=== PATIENT | male | born 1950 | race Caucasian/White ===

== ENCOUNTER → 2021-01-09 14:33 | Outpatient (BNVA) | payer MEDICARE, SELFPAY | PROVIDERS: PCP Internal Medicine; Visit Provider Internal Medicine Cardiovascular Disease | DX: I25.10 Atherosclerotic heart disease of native coronary artery without angina pectoris (principal); I10 Essential (primary) hypertension; Z79.899 Other long term (current) drug therapy | CPT/HCPCS: 93005; 99212 ==

== ENCOUNTER 2021-01-16 10:31 | Outpatient (REF) | payer MEDICARE, SELFPAY ==
[2021-01-16 10:49] LABS: MANUAL DIFF FLAG NO
[2021-01-16 11:18] LABS: Basophils Percent Auto 0.4 % (0-2); Eosinophils Absolute Auto 0.2 X10*3/uL (0.0-0.4); Eosinophils Percent Auto 2.6 % (0-4); Hematocrit 47.7 % (42-52); Imm Gran Abs Auto 0.02 X10*3/uL (0.00-0.03); Imm Gran Pct Auto 0.3 % (0.0-0.4); Lymphocytes Percent Auto 25.1 % (20-40); Mean Corpuscular HGB Conc 33.5 g/dl (31.0-36.0); Mean Corpuscular Hemoglobin 30.4 pg (27.0-33.0); Mean Corpuscular Volume 90.7 fL (80-98); Mean Platelet Volume 10.5 fL (9.4-12.4); Monocytes Absolute Auto 0.6 X10*3/uL (0.1-1.2); Neutrophils Percent Auto 63.6 % (45-73); Platelet Count 172 X10*3/uL (160-400); Red Blood Count 5.26 X10*6/uL (4.60-5.80); Red Cell Distribution Width 12.6 % (11.0-16.0); White Blood Count 7.8 X10*3/uL (4.8-10.8)
[2021-01-16 11:39] LABS: Glucose Urine UA NEG (NEG); Leukocyte Esterase Urine NEG (NEG); Nitrite Urine NEG (NEG); PH 6.5 (5.0-8.0); Specific Gravity - Urine 1.025 (1.005-1.025); Urine Blood NEG (NEG); Urine Ketones NEG (NEG); Urine Protein NEG (NEG-TRACE)
[2021-01-16 11:42] LABS: Appearance Urine CLEAR; Color Urine YELLOW
[2021-01-16 11:55] LABS: Alanine Aminotransferase 29 U/L (0-40); Alkaline Phosphatase 77 U/L (39-117); Anion Gap 14 (12-20); Aspartate Amino Transferase 21 U/L (5-37); Bilirubin Total 0.9 mg/dL (0.0-1.0); Blood Urea Nitrogen 22 mg/dL (9-16); Carbon Dioxide 27 mmol/L (22-29); Chloride 105 mmol/L (96-108); Cholesterol 132 mg/dL; Estimated Glomerular Filt Rate > 60; Glucose Fasting 96 mg/dL (60-99); HDL Cholesterol 44 mg/dL; LDL Cholesterol Calculated 73 mg/dl; Potassium 4.1 mmol/L (3.3-5.1); Sodium 142 mmol/L (135-145); Triglycerides 75 mg/dL
[2021-01-16 12:05] LABS: PSA,Total (Free>4and<10) < 0.05 ng/mL (0.00-4.00)
[2021-01-16 13:31] LABS: Reflex LDLD? No
== END 2021-01-16 10:32 | disposition home or self-care (01) ==
LOC: HO.LNP 10:31
PROVIDERS: Visit Provider Internal Medicine
DX: I10 Essential (primary) hypertension (principal); I25.10 Atherosclerotic heart disease of native coronary artery without angina pectoris; E78.00 Pure hypercholesterolemia, unspecified; E53.8 Deficiency of other specified B group vitamins; C61 Malignant neoplasm of prostate; Z12.5 Encounter for screening for malignant neoplasm of prostate
CPT/HCPCS: 80053; 80061; 81003; 84153; 85025

== ENCOUNTER → 2022-01-07 13:44 | Outpatient (BNVA) | payer MEDICARE, SELFPAY | PROVIDERS: PCP Internal Medicine; Referring Provider Internal Medicine; Visit Provider Internal Medicine Cardiovascular Disease | DX: I25.10 Atherosclerotic heart disease of native coronary artery without angina pectoris (principal); I10 Essential (primary) hypertension | CPT/HCPCS: 93005; 99212 ==

== ENCOUNTER 2022-01-22 11:25 | Outpatient (REF) | payer MEDICARE, SELFPAY ==
[2022-01-22 13:10] LABS: Alanine Aminotransferase 29 U/L (0-40); Albumin Level 3.8 g/dL (3.5-5.0); Alkaline Phosphatase 72 U/L (39-117); Aspartate Amino Transferase 24 U/L (5-37); Bilirubin Direct 0.2 mg/dL (0.0-0.5); Bilirubin Total 0.7 mg/dL (0.0-1.0); Cholesterol 139 mg/dL; HDL Cholesterol 43 mg/dL; LDL Cholesterol Calculated 65 mg/dl; Total Protein 6.9 g/dL (6.5-8.0); Triglycerides 155 mg/dL
[2022-01-22 13:51] LABS: Reflex LDLD? No
== END 2022-01-22 11:26 | disposition home or self-care (01) ==
LOC: HO.LNP 11:25
PROVIDERS: PCP Internal Medicine; Visit Provider Internal Medicine
DX: I10 Essential (primary) hypertension (principal); E78.00 Pure hypercholesterolemia, unspecified
CPT/HCPCS: 80061; 80076

== ENCOUNTER 2022-01-28 16:02 | Outpatient (REF) | payer MEDICARE, SELFPAY ==
[2022-01-28 16:08] LABS: MANUAL DIFF FLAG NO
[2022-01-28 16:19] LABS: Basophils Absolute Auto 0.1 X10*3/uL (0.0-0.2); Basophils Percent Auto 0.6 % (0-2); Eosinophils Absolute Auto 0.3 X10*3/uL (0.0-0.4); Eosinophils Percent Auto 3.3 % (0-4); Hematocrit 46.5 % (42.0-52.0); Hemoglobin 15.8 g/dl (14.0-18.0); Imm Gran Abs Auto 0.02 X10*3/uL (0.00-0.03); Imm Gran Pct Auto 0.3 % (0.0-0.4); Lymphocytes Absolute Auto 1.7 X10*3/uL (1.2-4.9); Mean Corpuscular Hemoglobin 30.9 pg (27.0-33.0); Mean Platelet Volume 10.5 fL (9.4-12.4); Monocytes Absolute Auto 0.7 X10*3/uL (0.1-1.2); Monocytes Percent Auto 9.5 % (2-11); Neutrophils Percent Auto 64.3 % (45-73); Platelet Count 189 X10*3/uL (160-400); Red Blood Count 5.11 X10*6/uL (4.60-5.80); Red Cell Distribution Width 12.1 % (11.0-16.0); White Blood Count 7.8 X10*3/uL (4.8-10.8)
[2022-01-28 16:28] LABS: Appearance Urine CLEAR; Color Urine YELLOW; Glucose Urine UA NEG (NEG); Leukocyte Esterase Urine NEG (NEG); Nitrite Urine NEG (NEG); PH 5.5 (5.0-8.0); Specific Gravity - Urine >= 1.030 (1.005-1.025); Urine Blood NEG (NEG); Urine Ketones NEG (NEG); Urine Protein NEG (NEG-TRACE)
[2022-01-28 16:33] LABS: Alanine Aminotransferase 26 U/L (0-40); Alkaline Phosphatase 75 U/L (39-117); Anion Gap 13 (12-20); Aspartate Amino Transferase 22 U/L (5-37); Bilirubin Total 0.6 mg/dL (0.0-1.0); Blood Urea Nitrogen 24 mg/dL (9-16); Calcium 9.5 mg/dL (8.4-10.2); Carbon Dioxide 27 mmol/L (22-29); Chloride 106 mmol/L (96-108); Estimated Glomerular Filt Rate > 60; Glucose Random 101 mg/dL (60-115); Potassium 4.1 mmol/L (3.3-5.1); Sodium 142 mmol/L (135-145); Total Protein 7.1 g/dL (6.5-8.0)
== END 2022-01-28 16:03 | disposition home or self-care (01) ==
LOC: HO.LNP 16:02
PROVIDERS: Visit Provider Internal Medicine
DX: I10 Essential (primary) hypertension (principal); R30.0 Dysuria
CPT/HCPCS: 80053; 81003; 85025; 87086

== ENCOUNTER 2022-08-02 10:36 | Outpatient (REF) | payer MEDICARE, SELFPAY ==
[2022-08-02 11:30] LABS: Alanine Aminotransferase 23 U/L (0-40); Albumin Level 3.9 g/dL (3.5-5.0); Alkaline Phosphatase 73 U/L (39-117); Aspartate Amino Transferase 20 U/L (5-37); Bilirubin Direct 0.3 mg/dL (0.0-0.5); Bilirubin Total 0.9 mg/dL (0.0-1.0); Cholesterol 139 mg/dL; HDL Cholesterol 41 mg/dL; LDL Cholesterol Calculated 77 mg/dl; Total Protein 6.7 g/dL (6.5-8.0); Triglycerides 105 mg/dL
[2022-08-02 12:03] LABS: Reflex LDLD? No
== END 2022-08-02 10:37 | disposition home or self-care (01) ==
LOC: HO.LNP 10:36
PROVIDERS: Visit Provider Internal Medicine
DX: E78.00 Pure hypercholesterolemia, unspecified (principal)
CPT/HCPCS: 80061; 80076

== ENCOUNTER 2022-12-02 11:09 | Day surgery (SDC) | payer MEDICARE, SELFPAY ==
--- NOTE | 2022-12-02 11:24 | HO.ANESPROP2 ---
[facility] Active Problems Active Problems: All Active Problems (Updated 11/29/22 @ 12:46 by Cristin Bynum RN) HTN (hypertension) (Acute) CAD (coronary artery disease) (Acute) Past Medical History Medical History (Updated 11/29/22 @ 12:46 by Cristin Bynum RN) CAD (coronary artery disease) HTN (hypertension) Hyperlipidemia IBS (irritable bowel syndrome) Prostate cancer Retinal detachment Sleep apnea Family History Family History Father No problems noted. Mother No problems noted. Family history of problems with anesthesia: No Surgical History Surgical History (Updated 11/29/22 @ 12:46 by Cristin Bynum RN) H/O colonoscopy History of cataract surgery History of prostate surgery Hx of knee surgery History of Problems with Anesthesia: No Social History Social History Advance Directives: No Advance Directives Information Provided: Yes Meds Allergies Allergy/AdvReac Type Severity Reaction Status Date / Time hydrochlorothiazide [HCTZ] Allergy Unknown COUGH WHEN Unverified 07/06/20 15:35 MED COMBO W/ LISINOPRIL, dry cough Active Medications: Current Medications Sodium Biphosphate/Sodium Phosphate (Sodium Phosphate,[place]-Dibasic 133 Ml Enema) 133 ml DE ONCE PRN PRN Reason: Poor Colonoscopy Prep Results Home Medications Medication Instructions Recorded Confirmed Last Taken Type aspirin 81 mg tablet,delayed 81 mg PO DAILY 01/09/21 01/07/22 Unknown History release (Adult Low Dose Aspirin) atorvastatin 80 mg tablet 80 mg PO DAILY 01/09/21 01/07/22 Unknown History cholecalciferol (vitamin D3) 25 25 mcg PO DAILY 01/09/21 01/07/22 Unknown History mcg (1,000 unit) capsule metoprolol succinate 50 mg 50 mg PO DAILY 01/09/21 01/07/22 Unknown History tablet,extended release 24 hr omeprazole 20 mg capsule,delayed 20 mg PO DAILY 01/09/21 01/07/22 Unknown History release valsartan 160 1 tab PO DAILY 01/09/21 01/07/22 Unknown History mg-hydrochlorothiazide 12.5 mg tablet timolol maleate 0.5 % eye drops 0 drp ophthalmic (eye) 01/07/22 01/07/22 Unknown History Exam Exam Date and Time: December 02, 2022 1124 Airway Mallampati Class: II TM Dist: >3cm Neck ROM: Limited Heart: rrr Lungs: cts Assessment and Plan Assessment Anesthesia Assessment: Anesthesia Plan Discussed and Chart Reviewed Final Anesthetic Review Family History of Problems with Anesthesia: No History of Problems with Anesthesia: No NPO: Yes ASA Class: III Final Preanesthetic Review: No Changes in Pt Med Stat, Meds/Allgs Chart Reviewed, Consent Obtained/Reviewed and Anes Risks/Benef Reviewed Patient Risk: Intermediate Procedure Risk: Low Anesthetic Plan Anesthetic Plan: MAC: Disposition: Standard PACU
[2022-12-02 11:30] VITALS: BMI 35.2
[2022-12-02 11:38] VITALS: BP 150/75; PULSE 64; RESP 16; TEMP 36.4; O2SAT 98
[2022-12-02 12:45] VITALS: BP 96/73; PULSE 60; RESP 16; TEMP 36.8; O2SAT 95
--- NOTE | 2022-12-02 12:48 | PM.OP ---
Brief Operative Note Date of Service: 12/02/22 Pre-op diagnosis: Screening Post-op diagnosis: other (Polyps) Procedure: Colonoscopy to the cecum and TI with hot snare polypectomy x 2 Surgeon: Radu Bains Anesthesia: MAC Was an Box Covering Machine Operator used for this Procedure?: No Estimated blood loss (mL): 0 Pathology: other (A. Ascending colon polyp B. Transverse colon polyp) Condition: stable Disposition: PACU
[2022-12-02 13:00] VITALS: BP 101/55; PULSE 65; RESP 16; TEMP 36.8; O2SAT 99
--- NOTE | 2022-12-02 21:34 | OP_ITS ---
SURGEON: Radu Bains MD INDICATIONS: The patient presents for evaluation of colorectal cancer screening and personal history of tubular adenoma of the colon. Full consent has been obtained from him for this, including risks of bleeding and perforation. PREOPERATIVE DIAGNOSIS: POSTOPERATIVE DIAGNOSIS: PROCEDURE PERFORMED: Colonoscopy to the cecum and terminal ileum with hot snare polypectomy. ESTIMATED BLOOD LOSS: COMPLICATIONS: ANESTHESIA: Monitored anesthesia care. ASSISTANTS: SPECIMENS: PREOPERATIVE DIAGNOSES: Colorectal cancer screening and personal history of tubular adenoma of the colon. POSTOPERATIVE DIAGNOSES: Colorectal cancer screening and personal history of tubular adenoma of the colon, colon polyps, diverticulosis, and internal hemorrhoids. DESCRIPTION OF PROCEDURE: The patient was placed in the left lateral decubitus position. The digital rectal exam revealed no abnormalities. The Olympus video pediatric colonoscope was then entered into the rectum and advanced easily to the cecum. Once in the cecum, I did identify normal-appearing cecal pouch with appendiceal orifice and normal-appearing ileocecal valve. The terminal ileum was cannulated and it appeared normal. The scope was withdrawn back in the colon. The entire cecum and ileocecal valve appeared normal. The scope was slowly withdrawn assessing all mucosal surfaces carefully. Preparation was good throughout the colon, although there was some areas of some liquid stool which had to be irrigated and suctioned away. In the proximal ascending colon, on a fold, was an approximately 10 mm polyp which was removed by hot snare polypectomy and recovered by suction. The polypectomy site appeared clean, without any sign of residual polyp nor bleeding. In the transverse colon, there was an approximately 8 mm polyp which was removed by hot snare polypectomy and recovered by suction. The polypectomy site appeared clean, without any sign of residual polyp nor bleeding. I did not visualize any other polyps, colitis nor angiodysplasia. There is a mild amount of sigmoid diverticulosis. In the rectum, scope was retroflexed visualizing internal hemorrhoids, but no other pathology. The rectal mucosa appeared normal. The scope was straightened and withdrawn from the patient. He tolerated the procedure well and was returned to the recovery area in stable condition. IMPRESSION: 1. Colon polyps. 2. Diverticulosis. 3. Internal hemorrhoids. PLAN: The results of pathology will be checked. Given his age, multiple previous colonoscopies, and today's relatively minimal findings, I do not think he will need any further screening colonoscopies. He was advised to not to use any aspirin or NSAIDs for 1 week. He will see me on a p.r.n. basis. MD MAYA Pemberton/MAHESH / [phone] MTDD
== END 2022-12-02 13:20 | disposition home or self-care (01) ==
PROVIDERS: PCP Internal Medicine; Visit Provider Internal Medicine
PROC: 0DJD8ZZ Inspection of Lower Intestinal Tract, Via Natural or Artificial Opening Endoscopic (ICD-10-PCS; CPT 45378; principal; 2022-12-02 12:20)
DX: Z12.11 Encounter for screening for malignant neoplasm of colon (principal); Z86.010 Personal history of colon polyps; D12.2 Benign neoplasm of ascending colon; D12.3 Benign neoplasm of transverse colon; K57.30 Diverticulosis of large intestine without perforation or abscess without bleeding; K64.8 Other hemorrhoids; K58.9 Irritable bowel syndrome, unspecified; K21.9 Gastro-esophageal reflux disease without esophagitis; E78.5 Hyperlipidemia, unspecified; I10 Essential (primary) hypertension; G47.30 Sleep apnea, unspecified; Z79.82 Long term (current) use of aspirin; Z79.899 Other long term (current) drug therapy; Z88.8 Allergy status to other drugs, medicaments and biological substances; Z85.46 Personal history of malignant neoplasm of prostate
CPT/HCPCS: 45385; 88305

== ENCOUNTER 2023-01-28 11:56 | Outpatient (REF) | payer MEDICARE, SELFPAY ==
[2023-01-28 11:59] LABS: MANUAL DIFF FLAG NO
[2023-01-28 12:14] LABS: Basophils Absolute Auto 0.1 X10*3/uL (0.0-0.2); Basophils Percent Auto 0.7 % (0-2); Eosinophils Absolute Auto 0.3 X10*3/uL (0.0-0.4); Eosinophils Percent Auto 3.3 % (0-4); Hematocrit 46.5 % (42.0-52.0); Hemoglobin 15.7 g/dl (14.0-18.0); Imm Gran Abs Auto 0.02 X10*3/uL (0.00-0.03); Imm Gran Pct Auto 0.3 % (0.0-0.4); Lymphocytes Absolute Auto 2.3 X10*3/uL (1.2-4.9); Lymphocytes Percent Auto 30.6 % (20-40); Mean Corpuscular HGB Conc 33.8 g/dl (31.0-36.0); Mean Corpuscular Hemoglobin 30.6 pg (27.0-33.0); Mean Corpuscular Volume 90.6 fL (80.0-98.0); Mean Platelet Volume 10.4 fL (9.4-12.4); Monocytes Absolute Auto 0.7 X10*3/uL (0.1-1.2); Monocytes Percent Auto 8.5 % (2-11); Neutrophils Absolute Auto 4.3 x10*3/uL (2.0-8.3); Neutrophils Percent Auto 56.6 % (45-73); Platelet Count 168 X10*3/uL (160-400); Red Blood Count 5.13 X10*6/uL (4.60-5.80); Red Cell Distribution Width 12.7 % (11.0-16.0); White Blood Count 7.6 X10*3/uL (4.8-10.8)
[2023-01-28 12:19] LABS: Appearance Urine Clear; Color Urine Yellow; Glucose Urine UA Negative (Negative); Leukocyte Esterase Urine Negative (Negative); Nitrite Urine Negative (Negative); PH 5.5 (5.0-9.0); Specific Gravity - Urine 1.025 (1.005-1.025); Urine Blood Negative (Negative); Urine Ketones Negative (Negative); Urine Protein Negative (Neg-Trace)
[2023-01-28 12:22] LABS: Bacteria Urine None Seen (None Seen); Hyaline Casts Urine 0-2 /LPF (0-2); RBC Urine 0-2 /HPF (0-2); Squamous Epithelial Cell Urine 0-2 /HPF (0-2); WBC Urine 0-5 /HPF (0-5)
[2023-01-28 12:41] LABS: Alanine Aminotransferase 21 U/L (0-40); Albumin Level 3.7 g/dL (3.5-5.0); Alkaline Phosphatase 69 U/L (39-117); Anion Gap 9 (12-20); Aspartate Amino Transferase 17 U/L (5-37); Bilirubin Total 0.9 mg/dL (0.0-1.0); Blood Urea Nitrogen 21 mg/dL (9-16); Carbon Dioxide 32 mmol/L (22-29); Chloride 106 mmol/L (96-108); Cholesterol 150 mg/dL; Estimated Glomerular Filt Rate 60; Glucose Fasting 101 mg/dL (60-99); HDL Cholesterol 45 mg/dL; LDL Cholesterol Calculated 92 mg/dl; Potassium 4.2 mmol/L (3.3-5.1); Sodium 143 mmol/L (135-145); Total Protein 6.5 g/dL (6.5-8.0); Triglycerides 66 mg/dL
[2023-01-28 13:04] LABS: PSA,Total (Free>4and<10) < 0.10 ng/mL (0.00-4.00)
== END 2023-01-28 11:57 | disposition home or self-care (01) ==
LOC: HO.LNP 11:56
PROVIDERS: Visit Provider Internal Medicine
DX: Z12.5 Encounter for screening for malignant neoplasm of prostate (principal); E78.00 Pure hypercholesterolemia, unspecified; I10 Essential (primary) hypertension
CPT/HCPCS: 80053; 80061; 81001; 84153; 85025

== ENCOUNTER 2023-08-15 11:01 | Outpatient (REF) | payer MEDICARE, SELFPAY ==
[2023-08-15 11:36] LABS: Alanine Aminotransferase 41 U/L (0-40); Albumin Level 3.6 g/dL (3.5-5.0); Alkaline Phosphatase 61 U/L (39-117); Aspartate Amino Transferase 30 U/L (5-37); Bilirubin Direct 0.3 mg/dL (0.0-0.5); Bilirubin Total 0.8 mg/dL (0.0-1.0); Total Protein 6.6 g/dL (6.5-8.0)
[2023-08-15 11:37] LABS: Cholesterol 133 mg/dL (<200); HDL Cholesterol 43 mg/dL (>40); LDL Cholesterol Calculated 76 mg/dL (<100); Triglycerides 72 mg/dL (<150)
[2023-08-15 15:52] LABS: Reflex LDLD? No
== END 2023-08-15 11:02 | disposition home or self-care (01) ==
LOC: HO.LNP 11:01
PROVIDERS: Visit Provider Internal Medicine
DX: E78.00 Pure hypercholesterolemia, unspecified (principal)
CPT/HCPCS: 80061; 80076

== ENCOUNTER 2024-02-03 11:14 | Outpatient (REF) | payer MEDICARE, SELFPAY ==
[2024-02-03 11:17] LABS: MANUAL DIFF FLAG NO
[2024-02-03 12:00] LABS: Appearance Urine Clear; Color Urine Yellow; Glucose Urine UA Negative (Negative); Leukocyte Esterase Urine Negative (Negative); Nitrite Urine Negative (Negative); Specific Gravity - Urine 1.025 (1.005-1.025); Urine Blood Negative (Negative); Urine Ketones Negative (Negative); Urine Protein Negative (Neg-Trace)
[2024-02-03 12:12] LABS: Basophils Percent Auto 0.5 % (0-2); Eosinophils Absolute Auto 0.2 X10*3/uL (0.0-0.4); Eosinophils Percent Auto 3.1 % (0-4); Hematocrit 45.7 % (42.0-52.0); Hemoglobin 15.7 g/dl (14.0-18.0); Imm Gran Abs Auto 0.03 X10*3/uL (0.00-0.03); Imm Gran Pct Auto 0.4 % (0.0-0.4); Lymphocytes Absolute Auto 2.2 X10*3/uL (1.2-4.9); Lymphocytes Percent Auto 27.8 % (20-40); Mean Corpuscular HGB Conc 34.4 g/dl (31.0-36.0); Mean Corpuscular Hemoglobin 31.3 pg (27.0-33.0); Mean Platelet Volume 10.6 fL (9.4-12.4); Monocytes Absolute Auto 0.7 X10*3/uL (0.1-1.2); Monocytes Percent Auto 8.5 % (2-11); Neutrophils Absolute Auto 4.7 x10*3/uL (2.0-8.3); Neutrophils Percent Auto 59.7 % (45-73); Platelet Count 186 X10*3/uL (160-400); Red Blood Count 5.02 X10*6/uL (4.60-5.80); Red Cell Distribution Width 12.9 % (11.0-16.0); White Blood Count 7.8 X10*3/uL (4.8-10.8)
[2024-02-03 12:14] LABS: Bacteria Urine None Seen (None Seen); Hyaline Casts Urine 0-2 /LPF (0-2); RBC Urine 0-2 /HPF (0-2); Squamous Epithelial Cell Urine 0-2 /HPF (0-2); WBC Urine 0-5 /HPF (0-5)
[2024-02-03 13:12] LABS: PSA,Total (Free>4and<10) < 0.10 ng/mL (0.00-4.00)
[2024-02-03 13:46] LABS: Alanine Aminotransferase 21 U/L (0-40); Albumin Level 3.8 g/dL (3.5-5.0); Alkaline Phosphatase 66 U/L (39-117); Anion Gap 14 (12-20); Aspartate Amino Transferase 20 U/L (5-37); Bilirubin Total 0.7 mg/dL (0.0-1.0); Blood Urea Nitrogen 24 mg/dL (9-16); Calcium 9.3 mg/dL (8.4-10.2); Carbon Dioxide 27 mmol/L (22-29); Chloride 104 mmol/L (96-108); Cholesterol 124 mg/dL (<200); Estimated Glomerular Filt Rate > 60; Glucose Fasting 95 mg/dL (60-99); HDL Cholesterol 45 mg/dL (>40); LDL Cholesterol Calculated 68 mg/dL (<100); Potassium 3.6 mmol/L (3.3-5.1); Sodium 141 mmol/L (135-145); Total Protein 7.3 g/dL (6.5-8.0); Triglycerides 55 mg/dL (<150)
== END 2024-02-03 11:15 | disposition home or self-care (01) ==
LOC: HO.LNP 11:14
PROVIDERS: Visit Provider Internal Medicine
DX: Z12.5 Encounter for screening for malignant neoplasm of prostate (principal); I10 Essential (primary) hypertension; E78.00 Pure hypercholesterolemia, unspecified
CPT/HCPCS: 80053; 80061; 81001; 84153; 85025

== ENCOUNTER 2024-05-10 10:38 | Outpatient (REF) | payer MEDICARE, SELFPAY ==
[2024-05-10 11:07] LABS: Blood Urea Nitrogen 25 mg/dL (9-16); Estimated Glomerular Filt Rate > 60
== END 2024-05-10 10:39 | disposition home or self-care (01) ==
LOC: HO.LNP 10:38
PROVIDERS: Visit Provider Internal Medicine
DX: R79.9 Abnormal finding of blood chemistry, unspecified (principal)
CPT/HCPCS: 82565; 84520

== ENCOUNTER 2024-08-03 10:56 | Outpatient (REF) | payer MEDICARE, SELFPAY ==
[2024-08-03 11:56] LABS: Alanine Aminotransferase 27 U/L (0-40); Albumin Level 3.8 g/dL (3.5-5.0); Alkaline Phosphatase 70 U/L (39-117); Aspartate Amino Transferase 23 U/L (5-37); Bilirubin Direct 0.4 mg/dL (0.0-0.5); Bilirubin Total 0.8 mg/dL (0.0-1.0); Cholesterol 126 mg/dL (<200); HDL Cholesterol 47 mg/dL (>40); LDL Cholesterol Calculated 68 mg/dL (<100); Total Protein 6.9 g/dL (6.5-8.0); Triglycerides 59 mg/dL (<150)
[2024-08-03 12:57] LABS: Reflex LDLD? No
== END 2024-08-03 10:57 | disposition home or self-care (01) ==
LOC: HO.LNP 10:56
PROVIDERS: Visit Provider Internal Medicine
DX: E78.00 Pure hypercholesterolemia, unspecified (principal)
CPT/HCPCS: 80061; 80076

== ENCOUNTER 2024-08-10 15:52 | Outpatient (REF) | payer MEDICARE, SELFPAY ==
[2024-08-10 16:32] LABS: Blood Urea Nitrogen 27 mg/dL (9-16); Estimated Glomerular Filt Rate > 60
== END 2024-08-10 15:53 | disposition home or self-care (01) ==
LOC: HO.LNP 15:52
PROVIDERS: Visit Provider Internal Medicine
DX: E78.00 Pure hypercholesterolemia, unspecified (principal)
CPT/HCPCS: 82565; 84520

== ENCOUNTER 2024-11-15 08:15 | Outpatient (REF) | payer MEDICARE, SELFPAY ==
[2024-11-15 10:55] LABS: Blood Urea Nitrogen 25 mg/dL (9-16)
--- OUTSIDE RECORDS SUMMARY | 2024-11-15 14:52 | XMS_ITS ---
Author Organization Tyree More MD Address [address] [place], [place] [phone] Care Team Providers Care Cloth Carrier Name Role Phone Tyree More Primary Care Provider Allergies Allergen (clinical drug ingredient) Drug/Non Drug Allergy documented on EMR Reaction Allergy Type Onset Date Status hydrochlorothiazide HCTZ (uncoded) dry cough Allergy Active Results Component Value Reference Range Notes Blood Urea Nitrogen Reviewed date:08/12/2024 09:12:54 AM Interpretation: Performing Lab:[facility], [address] [place] [phone] Notes/Report: Blood Urea Nitrogen 27 9-16 mg/dL Creatinine Reviewed date:08/10/2024 05:39:57 PM Interpretation: Performing Lab:[facility], [address] [place] [phone] Notes/Report: Creatinine 1.01 0.5-1.4 mg/dL Estimated Glomerular Filt Rate > 60 NOTE: For -[place] Island[place] individuals, multiply the result by 1.210. Chronic Kidney Disease: Estimated GFR < 60 mL/min/1.73m2 Severe Kidney Disease: Estimated GFR < 15 mL/min/1.73m2 REASON FOR VISIT 6 month Medications Medication SIG (Take, Route, Frequency, Duration) Notes Start Date End Date Status Timolol Maleate 0.5 % 1 drop into affect ed eye Ophthalmic Once a day Active Nystatin-Triamcinolone 756635-6.1 UNIT/GM-% 1 application to affected area Externally Twice a day for 30 days 05/24/2013 Not-Taking Omeprazole 20MG TAKE 1 CAPSULE BY [facility] EVERY DAY Active Aspir-81 81 MG 1 tablet Orally Once a day for 30 day(s) Active Vitamin C 500 MG as directed Orally Active LORazepam 0.5 MG 1 tablet as needed Orally 3 times per day as needed for 14 days 07/09/2018 Not-Taking Atorvastatin Calcium 80 MG TAKE 1 TABLET ONCE DAILY for 90 Active Nitrostat 0.4 MG 1 tablet under the tongue and allow to dissolve as needed Sublingual every 5 mins for 3 times for 30 days 05/31/2013 Not-Taki ng Valsartan-hydroCHLOROthia zide 160-12.5 MG TAKE 1 TABLET DAILY for 90 Active Metoprolol Succinate ER 50 MG TAKE 1 TABLET ONCE DAILY for 90 Active Vitamin D (Cholecalciferol) 400 UNIT 2 capsules Orally Once a day for 30 day(s) Active Vital Signs Blood pressure systolic 134 mm Hg 08/10/20 24 Blood pressure diastolic 60 mm Hg 024 Height 69.5 in 08/10/2024 Weight 235 lbs 08/10/2024 BMI 34.2 kg/m2 08/10/2024 weight is up 3 pounds since 02-09-24 Encounters Encounter Location Date Provider Diagnosis Tyree More MD [address] [place] [address] [address] [place], [place] [phone] 08/10/2024 Tyree More Pure hypercholestero lemia E78.00 and Elevated BUN R79.9 Assessments Encounter Date Diagnosis (ICD Code) Assessment Notes Treatment Notes Treatment Clinical Notes Section Notes 08/10/2024 Pure hypercholesterolemia (ICD-10 - E78.00) stable, is at goal, will continue current regtiment 08/10/2024 Elevated BUN (ICD-10 - R79.9) pending labs, will continue to monitor Plan Of Treatment Treatment Notes Assessment Notes Pure hypercholesterolemia stable, is at goal, will continue current regtiment Elevated BUN pending labs, will c ontinue to monitor Next Appt Details Follow Up: 6 Months, Reason: complete Provider Name:Tyree zuniga, 02/04/2025 07:45:00 AM, [address] [place] [address], [address], [place], [place], [phone], Provider Name:Tyree zuniga, 02/11/2025 01:30:00 PM, [address], [address], [place], [phone], Progress Notes * Tyree ALANIZ GDOB:1950 (74 yo M)Acc No.[id number]:08/10/2024 Progress Notes Patient:?Tyree Alaniz Provider:?Tyree More MD :1950???Age:74 Y???Sex:Male Shivam e:08/10/2024 Address: [address] [facility], [facility] Subjective: * Chief Complaints: * ???6 month * HPI: ???Symptom(s):? patient is a 74 yo male here for 6 month follow up visit. feeling well. * ROS:?General/Constitutional:?Denies?Chills.?Denies?Fatigue.?Denies?Fever.?Denies?Headache.?ENT:?Patient denies?decreased sense of smell , any loss of taste , sore throat.?Denies?Sore throat.?Respiratory:?Denies?Cough.?Denies?Shortness of breath at rest.?Denies?Shortness of breath with exertion.?Gastrointestinal:?Denies?Diarrhea.?Denies?Nausea.?Musculoskeletal:?Patient denies?muscle aches.?Peripheral Vascular:?Patient denies?red and blue toes.? * Medical History:? * Surgical History:? * Hospitalization/Major Diagno stic Procedure:? * Medications:?TakingTimolol M aleate 0.5 % Solution 1 drop into affected eye Ophthalmic Once a dayAspir-81 81 MG Tablet Delayed Release 1 tablet Orally Once a dayOmeprazole 20MG Capsule Delayed Release TAKE 1 CAPSULE BY MOUTH EVERY DAY Vitamin C 500 MG Capsule as directed Orally Vitamin D (Cholecalciferol) 400 UNIT Capsule 2 capsules Orally Once a dayMetoprolol Succinate ER 50 MG Tablet Extended Release 24 Hour TAKE 1 TABLET ONCE DAILY Valsartan-hydroCHLOROthiazide 160-12.5 MG Tablet TAKE 1 TABLET DAILY Atorvastatin Calcium 80 MG Tablet TAKE 1 TABLET ONCE DAILY Taking Timolol Maleate 0.5 % Solution 1 drop into affected eye Ophthalmic Once a dayTaking Aspir-81 81 MG Tablet Delayed Release 1 tablet Orally Once a dayTaking Omeprazole 20MG Capsule Delayed Release TAKE 1 CAPSULE BY MOUTH EVERY DAY Taking Vitamin C 500 MG Capsule as directed Orally Taking Vitamin D (Cholecalciferol) 400 UNIT Capsule 2 capsules Orally Once a dayTaking Metoprolol Succinate ER 50 MG Tablet Extended Release 24 Hour TAKE 1 TABLET ONCE DAILY Taking Valsartan-hydroCHLOROthiazide 160-12.5 MG Tablet TAKE 1 TABLET DAILY Taking Atorvastatin Calcium 80 MG Tablet TAKE 1 TABLET ONCE DAILY Not-Taking/PRNLORazepam 0.5 MG Tablet 1 tablet as needed Orally 3 times per day as neededNitrostat 0.4 MG Tablet Sublingual 1 tablet under the tongue and allow to dissolve as needed Sublingual every 5 mins for 3 timesNystatin-Triamcinolone 346330-1.1 UNIT/GM-% Cream 1 application to affected area Externally Twice a dayMedication List reviewed and reconciled with the patientNot-Taking/PRN LORazepam 0.5 MG Tablet 1 tablet as needed Orally 3 times per day as neededNot-Taking/PRN Nitrostat 0.4 MG Tablet Sublingual 1 tablet under the tongue and allow to dissolve as needed Sublingual every 5 mins for 3 timesNot-Taking/PRN Nystatin-Triamcinolone 296113-7.1 UNIT/GM-% Cream 1 application to affected area Externally Twice a dayMedication List reviewed and reconciled with the patient * Allergies:?HCTZ: dry coughye s[Allergies Verified] Objective: * Vitals:?Ht: 69.5, Wt: 235, B MA:34.2, BP:134/60, Wt-k.59 weight is up 3 pounds since 02-09-24. * ???Past Orders: ???Lab:Liver Panel (Order Da te - 08/03/2024) (Collection Date - 08/03/2024) ? Value Reference Range ?Bilirubin Total 0.8 0.0- 1.0 - mg/dL ?Bilirubin Direct 0.4 0.0 -0.5 - mg/dL ?Aspartate Amino Transferase 23 5-37 - U/L ?Alanine Aminotransferase 27 0-40 - U/L ?Total Protein 6.9 6.5-8. 0 - g/dL ?Albumin Level 3.8 3.5-5. 0 - g/dL ?Alkaline Phosphatase 70 39-117 - U/L ???Lab:Lipid Panel with Refl ex (Order Date - 08/03/2024) (Collection Date - 08/03/2024) ? Value Reference Range ?Triglycerides 59 <150 - mg/dL ?Cholesterol 126 <200 - m g/dL ?LDL Cholesterol Calculated 68 <100 - mg/dL ?HDL Cholesterol 47 >40 - mg/dL ???Lab:Hold Gold (Order Date - 08/03/2024) (Collection Date - 08/03/2024) ? Value Reference Range ?Hold Gold See Note - Assessment: * Assessment: 1.?Pure hypercholesterolemia - E78.00 (Primary)?2.?Elevated BUN - R79.9? Plan: * Treatment: ?LAB: Creatinine Notes: stable, is at goal, will continue current regtiment??2.?Elevated BUN? Notes: pending labs, will continue to monitor?? * Procedure Codes:?61986 VENIP UNCT, ROUTINE* * Follow Up:?6 Months (Reason: complete) * * Sign off status: Completed true * Provider:?Tyree More MD Date:?1 Generated for Kushi ng/Fazeyadg/eTransmitting on:?11/15/2024 02:52 PM EST History and Physical Notes * HPI (History of Present Illness) Category Sub-Category Detail Notes Category Not es Symptom(s) patient is a 74 yo male here for 6 month follow up visit. feeling well
--- OUTSIDE RECORDS SUMMARY | 2024-11-15 14:52 | XMS_ITS | Patient Health Record ---
Author Organization [facility] Address [address] [place] [address] Care Team Providers Care Heavy Equipment Sales Manager Name Role Phone Tyree More MD Primary Care Provider Radu Mauricio Unavailable [phone] ALLERGIES Allergen (clinical drug ingredient) Drug/Non Drug Allergy documented on EMR Reaction Allergy Type Onset Date Status hydrochlorothiazide hydrochlorothiazide (uncoded) dry cough when combined with lisinopril Allergy Active REASON FOR REFERRAL No Information MEDICATIONS Medication SIG (Take, Route, Frequency, Duration) Notes Start Date End Date Status Multi Vitamin/Minerals Active Vitamin C 500 MG Orally Act cathie Fiber Active Omeprazole 20 MG 1 capsule Orally Onc e a day Active Nitrostat 0.4 MG Sublingual as needed Active Valsartan-hydroCHLOROthiazi de 160-12.5 MG 1 tablet Orally Once a day Active Atorvastatin Calcium 80 MG 1 tablet Oral ly Once a day Active Metoprolol Succinate ER 50 MG 1 tablet Orally Once a day Active Vitamin D3 400 UNIT Orally Active Aspir-81 Active IMMUNIZATIONS Vaccine Route Administration Date Status Comme nts Influenza Unknown 06/20/2022 Administered SOCIAL HISTORY Sex Assigned At : Social History Observation Description Sex Assigned At Unknown PROBLEMS Problem Type ICD Code Onset Dates Problem Status W/U Status Risk SNOMED Code Notes Problem Encounter for screening for malignant neoplasm of colon (Z12.11) Active confirmed 240362371 Problem History of adenomatous polyp of colon (Z86.010) Active confirmed 475478438 Problem Gastroesophageal reflux disease without esophagitis (K21.9) Active confirmed 624561189 Problem Long-term use of aspirin therapy (Z79.82) Active confirmed 130938289 Problem Irritable bowel syndrome, unspecified type (K58.9) Active confirmed 19839119 Problem Diverticulosis of colon (K57.30) Active confirmed Diverticulosi s of colon (283245259) PLAN OF TREATMENT Pending Test Test Name Order Date Pathology 12/02/2022 Future Test Test Name Order Date UPPER GI ENDOSCOPY 07/17/2011 COLONOSCOPY 07/17/2011 COLONOSCOPY 04/11/2017 COLONOSCOPY 11/05/2022 Insurance Providers Payer Name Payer Address Payer Phone Subscriber Number Group Number Insured Name Patient Relationship to Insured Coverage Start Date Coverage End Date MEDICARE OF [place] [address] [place] [address] [phone] [id number] TYREE QUINONES Self - patient is the insured MED[employer] ATT[employer] CLAIMS [address] [place] [address] [phone] [id number] TYREE QUINONES Self - patient is the insured MEDICAL (GENERAL) HISTORY Medical History History ICD Code Negative screening colonosco py 11-26-2011 except for diverticulosis and internal hemorrhoids; colonoscopy in 2005 revealed a tubular adenoma that was removed and a colonoscopy in 1999 was negative except for hyperplastic polyps Prostate cancer treated with prostatecto my in February 2011 Hypertension Hyperlipidemia Denies MT,DM,CVA,Lung diseas e,renal disease--had a negative cardiac cath with Dr. Greenwood GERD--EGD in 11/2011--HH--no esophagitis nor Ornelas's; EGD in 1999 with a HH and erosive esophagitis Sleep apnea--uses CPAP IBS--on Metamucil Negative colonoscopy in 06/2017 Surgical History Surgery Date(Month/Year) Laparoscopic prostatectomy i n February [address] Day--for prostate cancer Cataract surgery Retinal detachment Surgery for a broken ankle in August 21 010. Left eye surgery
--- OUTSIDE RECORDS SUMMARY | 2024-11-15 14:52 | XMS_ITS ---
Author Organization Tyree More MD Address [address] [place] [phone] Care Team Providers Care Manufacturing Project Engineer Name Role Phone Tyree More Primary Care Provider Results Component Value Reference Range Notes Blood Urea Nitrogen (Not yet reviewed by provider) Interpretation: Performing Lab:[facility], [address] [place] [phone] Notes/Report: Blood Urea Nitrogen 25 9-16 mg/dL REASON FOR VISIT BUN elevated Encounters Encounter Location Date Provider Diagnosis Tyree More MD [address] [place] [address] [place] [phone] 11/15/2024 Tyree More Essential hypertension I10 and Elevated BUN R79.9 Assessments Encounter Date Diagnosis (ICD Code) Assessment Notes Treatment Notes Treatment Clinical Notes Section Notes 11/15/2024 Essential hypertension (ICD-10 - I10) 11/15/2024 Elevated BUN (ICD-10 - R79.9) Plan Of Treatment Pending Test Test Name Order Date Blood Urea Nitrogen 11/15/2024 Next Appt Details Provider Name:Tyree zuniga, 02/04/2025 07:45:00 AM, [address] [place] [address], [address], [phone], Provider Name:Tyree zuniga, 02/11/2025 01:30:00 PM, [address] [place] [address], [address], [phone], Progress Notes * Tyree ALANIZ GDOB:1950 (74 yo M)Acc No.[id number]:11/15/2024 Progress Note Patient:?Tyree ALANIZ Provider:?Tyree More MD :1950???Age:74 Y???Sex:Male Shivam e:11/15/2024 Address:[place] [address], [address] [facility], [place] [address] Subjective: * Chief Complaints: * ???1. BUN elevated. * Medical History:? Objective: * Vitals:? Assessment: * Assessment: 1.?Essential hypertension - I10???2.?Elevated BUN - R79.9??? Plan: * Treatment: * Procedure Codes:?66373 VENIP UNCT, ROUTINE* * * The named appointment provid er may or may not be the originator of this progress note, and it is not deemed complete until electronically signed by the appointment provider. Sign off status: Pending * Provider:?Tyree More MD Date:?0 11/15/2024 Generated for Vonda rosenberg/Vernell/Jyotiransmitting on:?11/15/2024 02:51 PM EST
--- OUTSIDE RECORDS SUMMARY | 2024-11-15 14:52 | XMS_ITS ---
Author Organization Tyree More MD Address [address] [place], [place] [phone] Care Team Providers Care It Help Desk Manager Name Role Phone Tyree More Primary Care Provider [phone] Results Component Value Reference Range Notes Liver Panel Reviewed date:08/04/2024 06:40:10 PM Interpretation: Performing Lab:[facility], [address] [place] [phone] Notes/Report: Bilirubin Total 0.8 0.0-1.0 mg/dL Bilirubin Direct 0.4 0.0-0.5 mg/dL Aspartate Amino Transferase 23 5-37 U/L Alanine Aminotransferase 27 0-40 U/L Total Protein 6.9 6.5-8.0 g/dL Albumin Level 3.8 3.5-5.0 g/dL Alkaline Phosphatase 70 39-117 U/L Lipid Panel with Reflex Reviewed date:08/04/2024 06:40:18 PM Interpretation: Performing Lab:[facility], [address] [place] [phone] Notes/Report: Triglycerides 59 <150 mg/dL Desirable Triglyceride: less than 150 mg/dL Borderline High Triglyceride 150-199 mg/dL High Triglyceride: 200-499 mg/dL Very High Triglyceride: greater than or equal to 5OO mg/dL Cholesterol 126 <200 mg/dL Desirable Cholesterol: less than 200 mg/dL Borderline High Cholesterol: 200-239 mg/dL High Cholesterol: greater than 239 mg/dL LDL Cholesterol Calculated 68 <100 mg/dL Desirable LDL: less than 100 mg/dL Near Optimal/Above Optimal LDL: 110-129 mg/dL Borderline High LDL: 130-159 mg/dL High LDL: 160-189 mg/dL Very High LDL: greater than or equal to 190 mg/dL HDL Cholesterol 47 >40 mg/dL Desirable HDL: greater than 40 mg/dL Note: This HDL assay may give artificially low results in patients with liver disease. REASON FOR VISIT fasting lipids Immunizations Vaccine Route Administration Date Status Comme nts Influenza High Dose IM Intramuscular 08/03/2024 Administer ed Encounters Encounter Location Date Provider Diagnosis Tyree More MD [address] [place] [address] [place] [phone] 08/03/2024 Tyree More Pure hypercholestero lemia E78.00 and Encounter for immunization Z23 Assessments Encounter Date Diagnosis (ICD Code) Assessment Notes Treatment Notes Treatment Clinical Notes Section Notes 08/03/2024 Pure hypercholesterolemia (ICD-10 - E78.00) 08/03/2024 Encounter for immunization (ICD-10 - Z23) Plan Of Treatment Next Appt Details Provider Name:Tyree zuniga, 02/04/2025 07:45:00 AM, [address] [place] [address], [address] [place] [address], [phone], Provider Name:Tyree zuniga, 02/11/2025 01:30:00 PM, [address] [place] [address], [place] [address], [place], [place], [phone], Progress Notes * Tyree ALANIZ GDOB:1950 (74 yo M)Acc No.[id number]:08/03/2024 Progress Note Patient:?Tyree Alaniz Provider:?Tyree More MD :1950???Age:74 Y???Sex:Male Shivam e:08/03/2024 Address:[facility], [address] [place] [address], [place], [phone] Subjective: * Chief Complaints: * ???Fasting lipids * Medical History:? * Surgical History:? * Hospitalization/Major Diagno stic Procedure:? * Medications:? Objective: Assessment: * Assessment: 1.?Pure hypercholesterolemia - E78.00 (Primary)?2.?Encounter for immunization - Z23? Plan: * Treatment: * Immunizations:? Influenza High Dose : 90.5 mL (Dose No:1) (Route: Intramuscular) given by Brianna Lopes on Left Deltoid * Procedure Codes:?01430 VENIP UNCT, ROUTINE*05749 FLU VACC PRSV FREE INC [id number] ADMN FLU VAC NO FEE SCHED SAME DAY * * Sign off status: Completed true * Provider:?Tyree More MD Date:?1 Generated for Vonda rosenberg/Vernell/Joann on:?11/15/2024 02:52 PM EST
== END 2024-11-15 08:16 | disposition home or self-care (01) ==
LOC: HO.LNP 08:15
PROVIDERS: Visit Provider Internal Medicine
DX: R79.9 Abnormal finding of blood chemistry, unspecified (principal)
CPT/HCPCS: 84520

== ENCOUNTER 2025-02-04 10:18 | Outpatient (REF) | payer MEDICARE, SELFPAY ==
[2025-02-04 10:21] LABS: MANUAL DIFF FLAG NO
[2025-02-04 10:48] LABS: Basophils Absolute Auto 0.1 X10*3/uL (0.0-0.2); Basophils Percent Auto 0.6 % (0-2); Eosinophils Absolute Auto 0.3 X10*3/uL (0.0-0.4); Eosinophils Percent Auto 3.3 % (0-4); Hematocrit 45.3 % (42.0-52.0); Hemoglobin 15.5 g/dl (14.0-18.0); Imm Gran Abs Auto 0.02 X10*3/uL (0.00-0.03); Imm Gran Pct Auto 0.3 % (0.0-0.4); Lymphocytes Absolute Auto 2.4 X10*3/uL (1.2-4.9); Lymphocytes Percent Auto 30.2 % (20-40); Mean Corpuscular HGB Conc 34.2 g/dl (31.0-36.0); Mean Corpuscular Hemoglobin 30.8 pg (27.0-33.0); Mean Corpuscular Volume 90.1 fL (80.0-98.0); Mean Platelet Volume 10.2 fL (9.4-12.4); Monocytes Absolute Auto 0.8 X10*3/uL (0.1-1.2); Monocytes Percent Auto 9.9 % (2-11); Neutrophils Absolute Auto 4.4 x10*3/uL (2.0-8.3); Neutrophils Percent Auto 55.7 % (45-73); Platelet Count 168 X10*3/uL (160-400); Red Blood Count 5.03 X10*6/uL (4.60-5.80); Red Cell Distribution Width 12.7 % (11.0-16.0)
[2025-02-04 10:58] LABS: Appearance Urine Clear; Color Urine Yellow; Glucose Urine UA Negative (Negative); Leukocyte Esterase Urine Negative (Negative); Nitrite Urine Negative (Negative); PH 5.5 (5.0-9.0); UMIC TRIGGER UACC YES; Urine Blood Moderate (2+) (Negative); Urine Ketones Negative (Negative); Urine Protein Negative (Neg-Trace)
[2025-02-04 11:04] LABS: Bacteria Urine None Seen (None Seen); Hyaline Casts Urine 0-2 /LPF (0-2); RBC Urine >20 /HPF (0-2); Squamous Epithelial Cell Urine 0-2 /HPF (0-2); WBC Urine 0-5 /HPF (0-5)
[2025-02-04 11:09] LABS: Alanine Aminotransferase 27 U/L (0-40); Albumin Level 3.7 g/dL (3.5-5.0); Anion Gap 12 (12-20); Aspartate Amino Transferase 29 U/L (5-37); Bilirubin Total 0.7 mg/dL (0.0-1.0); Blood Urea Nitrogen 22 mg/dL (9-16); Calcium 9.1 mg/dL (8.4-10.2); Carbon Dioxide 28 mmol/L (22-29); Chloride 106 mmol/L (96-108); Cholesterol 124 mg/dL (<200); Estimated Glomerular Filt Rate > 60; Glucose Fasting 98 mg/dL (60-99); HDL Cholesterol 43 mg/dL (>40); LDL Cholesterol Calculated 73 mg/dL (<100); Sodium 142 mmol/L (135-145); Triglycerides 43 mg/dL (<150)
--- OUTSIDE RECORDS SUMMARY | 2025-02-04 11:12 | XMS_ITS | Patient Health Record ---
Author Organization [facility] Address [address] [place] [address] Care Team Providers Care Tractor Operator Helper Name Role Phone Tyree More MD Primary Care Provider Radu Mauricio Unavailable [phone] Allergies Allergen (clinical drug ingredient) Drug/Non Drug Allergy documented on EMR Reaction Allergy Type Onset Date Status hydrochlorothiazide hydrochlorothiazide (uncoded) dry cough when combined with lisinopril Allergy Active Reason For Referral No Information Medications Medication SIG (Take, Route, Frequency, Duration) [...] D3 400 UNIT Orally Active Aspir-81 Active Immunizations Vaccine Route Administration Date Status Comme nts Influenza Unknown 06/20/2022 Administered Problems Problem Type SNOMED Code ICD Code Onset Dates Problem Status W/U Status Risk Notes Problem 276095818 Encounter for screening for malignant neoplasm of colon (Z12.11) Active confirmed Problem 952615612 History of adenomatous polyp of colon (Z86.010) Active confirmed Problem 543134838 Gastroesophageal reflux disease without esophagitis (K21.9) Active confirmed Problem 423089610 Long-term use of aspirin therapy (Z79.82) Active confirmed Problem 36787039 Irritable bowel syndrome, unspecified type (K58.9) Active confirmed Problem Diverticulosis of colon (070370155) Diverticulosis of colon (K57.30) Active confirmed Plan Of Treatment Pending Test Test Name Order Date Pathology 12/02/2022 Future Test Test Name Order Date UPPER GI ENDOSCOPY 07/17/2011 COLONOSCOPY 07/17/2011 COLONOSCOPY 04/11/2017 COLONOSCOPY 11/05/2022 Insurance Providers Payer Name Payer Address Payer Phone Subscriber Number Group Number Insured Name Patient Relationship to Insured Coverage Start Date Coverage End Date MEDICARE OF [place] [address] [place] [address] [phone] [id number] TYREE QUINONES Self - patient is the insured [employer] CLAIMS [address] [place] [phone] [id number] TYREE QUINONES Self - patient is the insured Medical (General) History Medical History History ICD Code Negative screening colonosco py 11-26-2011 except for diverticulosis and internal hemorrhoids; colonoscopy in 2005 revealed a tubular adenoma that was removed and a colonoscopy in 1999 was negative except for hyperplastic polyps Prostate cancer treated with prostatecto my in February 2011 Hypertension Hyperlipidemia Denies NE,DM,CVA,Lung diseas e,renal disease--had a negative cardiac cath [...]
--- OUTSIDE RECORDS SUMMARY | 2025-02-04 11:12 | XMS_ITS ---
Author Organization Tyree More MD Address [address] [place] [phone] Care Team Providers Care Prison Officer Name Role Phone Tyree More Primary Care Provider Results Component Value Reference Range Notes Blood Urea Nitrogen Reviewed date:11/15/2024 05:00:05 PM Interpretation: Performing Lab:[facility], [address] [place] [phone] Notes/Report: Blood Urea Nitrogen 25 9-16 mg/dL REASON FOR VISIT BUN elevated Encounters Encounter Location Date Provider Diagnosis Tyree More MD [address] [place] [address] [place] [phone] 11/15/2024 Tyree More Essential hypertension I10 and Elevated BUN R79.9 Assessments Encounter Date Diagnosis (ICD Code) Assessment Notes Treatment Notes Treatment Clinical Notes Section Notes 11/15/2024 Essential hypertension (ICD-10 - I10) 11/15/2024 Elevated BUN (ICD-10 - R79.9) Plan Of Treatment Next Appt Details Provider Name:Tyree zuniga, 02/11/2025 01:30:00 PM, [address] [facility], [address] [facility], [place], [place], [phone], Progress Notes * Tyree ALANIZ GDOB:1950 (74 yo M)Acc No.[id number]:11/15/2024 Progress Note Patient:?Tyree ALANIZ Provider:?Tyree More MD :1950???Age:74 Y???Sex:Male Shivam e:11/15/2024 Address:[place] [address], [address], [place], [place] Subjective: * Chief Complaints: * ???1. BUN elevated. * Medical History:? Objective: * Vitals:? Assessment: * Assessment: 1.?Essential hypertension - I10 (Primary)???2.?Elevated BUN - R79.9??? Plan: * Treatment: * Procedure Codes:?25837 VENIP UNCT, ROUTINE* * * The named appointment provid er may or may not be the originator of this progress note, and it is not deemed complete until electronically signed by the appointment provider. Sign off status: Pending * Provider:?Tyree More MD Date:?0 11/15/2024 Generated for Vonda rosenberg/Vernell/Gretchenitting on:?02/04/2025 11:12 AM EDT
--- OUTSIDE RECORDS SUMMARY | 2025-02-04 11:12 | XMS_ITS ---
Author Organization Tyree More MD Address [address] [place], [place] [phone] Care Team Providers Care Yeast Maker Name Role Phone Tyree More Primary Care Provider Results Component Value Reference Range Notes Complete Blood Count Auto Di ff (Not yet reviewed by provider) Interpretation: Performing Lab:[facility], [address] [place] [phone] Notes/Report: White Blood Count 8.0 4.8-10.8 X10*3/uL Red Blood Count 5.03 4.60-5.80 X10*6/uL Hemoglobin 15.5 14.0-18.0 g/dl Hematocrit 45.3 42.0-52.0 % Mean Corpuscular Volume 90.1 80.0-98.0 fL Mean Corpuscular Hemoglobin 30.8 27.0-33.0 pg Mean Corpuscular HGB Conc 34.2 31.0-36.0 g/dl Red Cell Distribution Width 12.7 11.0-16.0 % Platelet Count 168 160-400 X10*3/uL Mean Platelet Volume 10.2 9.4-12.4 fL Neutrophils Percent Auto 55.7 45-73 % Imm Gran Pct Auto 0.3 0.0-0.4 % Lymphocytes Percent Auto 30.2 20-40 % Monocytes Percent Auto 9.9 2-11 % Eosinophils Percent Auto 3.3 0-4 % Basophils Percent Auto 0.6 0-2 % NRBC Pct Auto 0.0 0.0-0.2 /100WBC Neutrophils Absolute Auto 4.4 2.0-8.3 x10*3/u L Imm Gran Abs Auto 0.02 0.00-0.03 X10*3/uL Lymphocytes Absolute Auto 2.4 1.2-4.9 X10*3/u L Monocytes Absolute Auto 0.8 0.1-1.2 X10*3/uL Eosinophils Absolute Auto 0.3 0.0-0.4 X10*3/u L Basophils Absolute Auto 0.1 0.0-0.2 X10*3/uL NRBC Abs Auto 0.000 0.0-0.012 X10*3/uL UA ClnCatch+Micro w/rflx Cul t (Not yet reviewed by provider) Interpretation: Performing Lab:[facility], [address] [place] [phone] Notes/Report: Urine, Clean Catch Color Urine Yellow Appearance Urine Clear PH 5.5 5.0-9.0 Glucose Urine UA Negative Negative mg/dL Urine Blood Moderate (2+) Negative Specific [place] - Urine 1.020 1.005-1.025 Urine Protein Negative Neg-Trace mg/dL Urine Ketones Negative Negative mg/dL Nitrite Urine Negative Negative Leukocyte Esterase Urine Negative Negative RBC Urine >20 0-2 /HPF WBC Urine 0-5 0-5 /HPF Squamous Epithelial Cell Urine 0-2 0-2 /HPF Bacteria Urine None Seen None Seen Hyaline Casts Urine 0-2 0-2 /LPF REASON FOR VISIT fasting yearly labs Encounters Encounter Location Date Provider Diagnosis Tyree More MD [address] [facility] [address] [place], [place] [phone] 02/04/2025 Tyree More Essential hypertensi on I10 and Pure hypercholesterolemia E78.00 Assessments Encounter Date Diagnosis (ICD Code) Assessment Notes Treatment Notes Treatment Clinical Notes Section Notes 02/04/2025 Essential hypertensi on (ICD-10 - I10) 02/04/2025 Pure hypercholesterolemia (ICD-10 - E78.00) Plan Of Treatment Pending Test Test Name Order Date Complete Blood Count Auto Diff 5 Comprehensive [place]. Panel Fast 5 Lipid Panel 02/04/2025 PSA,Total (Free>4and<10) 02/04/2025 UA ClnCatch+Micro w/rflx Cult 02/04/2025 Next Appt Details Provider Name:Tyree Murray ier, 02/11/2025 01:30:00 PM, [address], [address], [place], [place], [phone], Progress Notes * Tyree ALANIZ GDOB:1950 (74 yo M)Acc No.[id number]:02/04/2025 Progress Note Patient:?Tyree ALANIZ Provider:?Tyree More MD :1950???Age:74 Y???Sex:Male Shivam e:02/04/2025 Address:[place] [address], [address] [facility], [facility] Subjective: * Chief Complaints: * ???1. Fasting yearly labs. * Medical History:? Objective: * Vitals:? Assessment: * Assessment: 1.?Essential hypertension - I10 (Primary)???2.?Pure hypercholesterolemia - E78.00??? Plan: * Treatment: 2.?Pure hypercholesterolemia ?LAB: Complete Blood Count Auto Diff (Collection Date & Time - 02/04/2025 07:45 AM) ?LAB: Comprehensive [place]. Panel Fast ?LAB: Lipid Panel ?LAB: PSA,Total (Free>4and<10) ?LAB: UA ClnCatch+Micro w/rflx Cult (Collection Date & Time - 02/04/2025 07:45 AM) * Procedure Codes:?91579 VENIP UNCT, ROUTINE* * * The named appointment provid er may or may not be the originator of this progress note, and it is not deemed complete until electronically signed by the appointment provider. Sign off status: Pending * Provider:?Tyree More MD Date:?0 02/04/2025 Generated for Vonda ng/Macyg/eTransmitting on:?02/04/2025 11:12 AM EDT
--- OUTSIDE RECORDS SUMMARY | 2025-02-04 11:13 | XMS_ITS ---
Author Organization Tyree More MD Address [address] [place], [place] [address] Care Team Providers Care Valet Parking Attendant Name Role Phone Tyree More Primary Care Provider Allergies Allergen (clinical drug ingredient) Drug/Non Drug Allergy documented on EMR Reaction Allergy Type Onset Date Status hydrochlorothiazide HCTZ (uncoded) dry cough Allergy Active Results Component Value Reference Range Notes Blood Urea Nitrogen Reviewed date:08/12/2024 09:12:54 AM Interpretation: Performing Lab:[facility], [address] [place] [phone] Notes/Report: Blood Urea Nitrogen 27 9-16 mg/dL Creatinine Reviewed date:08/10/2024 05:39:57 PM Interpretation: Performing Lab:[facility], [address] [place] [phone] Notes/Report: Creatinine 1.01 0.5-1.4 mg/dL Estimated Glomerular Filt Rate > 60 NOTE: For -Beninese individuals, multiply the result by 1.210. Chronic Kidney Disease: Estimated GFR < 60 mL/min/1.73m2 Severe Kidney Disease: Estimated GFR < 15 mL/min/1.73m2 REASON FOR VISIT 6 month Medications Medication SIG (Take, Route, Frequency, Duration) Notes Start Date End Date Status Timolol Maleate 0.5 % 1 drop into affect ed eye Ophthalmic Once a day Active Nystatin-Triamcinolone 264670-3.1 UNIT/GM-% 1 application to affected area Externally Twice a day for 30 days 05/24/2013 Not-Taking Omeprazole 20MG TAKE 1 CAPSULE BY [facility] EVERY DAY Active Aspir-81 81 MG 1 [...] Date Provider Diagnosis Tyree More MD [address] [place], [place] [phone] 08/10/2024 Tyree More Pure hypercholestero lemia E78.00 [...] 6 Months, Reason: complete Provider Name:Tyree zuniga, 02/11/2025 01:30:00 PM, [address], [address], [place], [place], [phone], Progress Notes * Tyree ALANIZ GDOB:1950 (74 yo M)Acc No.[id number]:08/10/2024 Progress Notes Patient:?Tyree Alaniz Provider:?Tyree More MD :1950???Age:74 Y???Sex:Male Shivam e:08/10/2024 Address:[place] [address], [address] [facility] Subjective: * Chief Complaints: * ???6 month [...] Sublingual every 5 mins for 3 timesNystatin-Triamcinolone 356962-5.1 UNIT/GM-% Cream 1 application to affected area Externally Twice a dayMedication List reviewed and reconciled with the patientNot-Taking/PRN LORazepam 0.5 MG Tablet 1 tablet as needed Orally 3 times per day as neededNot-Taking/PRN Nitrostat 0.4 MG Tablet Sublingual 1 tablet under the tongue and allow to dissolve as needed Sublingual every 5 mins for 3 timesNot-Taking/PRN Nystatin-Triamcinolone 294034-2.1 UNIT/GM-% Cream 1 application to affected area Externally Twice a dayMedication List reviewed and reconciled with the patient * Allergies:?HCTZ: dry coughye s[Allergies Verified] Objective: * Vitals:?Ht: 69.5, Wt: 235, B MN:34.2, BP:134/60, Wt-k.59 weight is up 3 pounds [...] labs, will continue to monitor?? * Procedure Codes:?28695 VENIP UNCT, ROUTINE* * Follow Up:?6 Months (Reason: complete) * * Sign off status: Completed true * Provider:?Tyree More MD Date:?1 Generated for Vonda rosenberg/Vernell/eTransmitting on:?02/04/2025 11:13 AM EDT History and Physical Notes * HPI (History of Present Illness) Category Sub-Category Detail Notes Category Not es Symptom(s) patient is a 74 yo male here for 6 month follow up visit. feeling well
--- OUTSIDE RECORDS SUMMARY | 2025-02-04 11:13 | XMS_ITS | Patient Health Record ---
Author Organization Tyree More MD Address [address] [place], [place] [phone] Care Team Providers Care Rn Military Name Role Phone Tyree More Primary Care Provider Allergies Allergen (clinical drug ingredient) Drug/Non Drug Allergy documented on EMR Reaction Allergy Type Onset Date Status hydrochlorothiazide HCTZ (uncoded) dry cough Allergy Active Results Component Value Reference Range Notes Blood Urea Nitrogen Reviewed date:05/10/2024 12:36:09 PM Interpretation: Performing Lab:[facility], [address] [place] [phone] Notes/Report: Blood Urea Nitrogen 25 9-16 mg/dL Creatinine Reviewed date:05/10/2024 12:34:50 PM Interpretation: Performing Lab:[facility], [address] [place] [phone] Notes/Report: Creatinine 1.08 0.5-1.4 mg/dL Estimated Glomerular Filt Rate > 60 NOTE: For -Martiniqu[place] individuals, multiply the result by 1.210. Chronic Kidney Disease: Estimated GFR < 60 mL/min/1.73m2 Severe Kidney Disease: Estimated GFR < 15 mL/min/1.73m2 Blood Urea Nitrogen Reviewed date:11/15/2024 05:00:05 PM Interpretation: Performing Lab:[facility], [address] [place] [phone] Notes/Report: Blood Urea Nitrogen 25 9-16 mg/dL Complete Blood Count Auto Di ff (Not yet reviewed by provider) Interpretation: Performing Lab:[facility], [address] [place] [phone] Notes/Report: White Blood Count 8.0 4.8-10.8 X10*3/uL [...] (Not yet reviewed by provider) Interpretation: Performing Lab:[facility], [address] [place] [phone] Notes/Report: Urine, Clean Catch Color Urine Yellow Appearance Urine Clear PH 5.5 5.0-9.0 Glucose Urine UA Negative Negative mg/dL Urine Blood Moderate (2+) Negative Specific [place] - Urine 1.020 1.005-1.025 Urine Protein Negative Neg-Trace mg/dL Urine Ketones Negative Negative mg/dL Nitrite Urine Negative Negative Leukocyte Esterase Urine Negative Negative RBC Urine >20 0-2 /HPF WBC Urine 0-5 0-5 /HPF Squamous Epithelial Cell Urine 0-2 0-2 /HPF Bacteria Urine None Seen None Seen Hyaline Casts Urine 0-2 0-2 /LPF Occult Blood, Stool, Guaiac Reviewed date:02/09/2024 03:42:35 PM Interpretation:Negative Performing Lab: Notes/Report: Negative Occult Blood, Stool, Guaiac Neg Liver Panel Reviewed date:08/04/2024 06:40:10 PM Interpretation: Performing Lab:[facility], [address] [place] [phone] Notes/Report: Bilirubin Total 0.8 0.0-1.0 mg/dL Bilirubin Direct 0.4 0.0-0.5 mg/dL Aspartate Amino Transferase 23 5-37 U/L Alanine Aminotransferase 27 0-40 U/L Total Protein 6.9 6.5-8.0 g/dL Albumin Level 3.8 3.5-5.0 g/dL Alkaline Phosphatase 70 39-117 U/L Lipid Panel with Reflex Reviewed date:08/04/2024 06:40:18 PM Interpretation: Performing Lab:[facility], [address] [place] [phone] Notes/Report: Triglycerides 59 <150 mg/dL Desirable Triglyceride: [...] low results in patients with liver disease. Blood Urea Nitrogen Reviewed date:08/12/2024 09:12:54 AM Interpretation: Performing Lab:[facility], [address] [place] [phone] Notes/Report: Blood Urea Nitrogen 27 9-16 mg/dL Creatinine Reviewed date:08/10/2024 05:39:57 PM Interpretation: Performing Lab:[facility], [address] [place] [phone] Notes/Report: Creatinine 1.01 0.5-1.4 mg/dL Estimated Glomerular Filt Rate > 60 NOTE: For -Martiniquais individuals, multiply the result by 1.210. Chronic Kidney Disease: Estimated GFR < 60 mL/min/1.73m2 Severe Kidney Disease: Estimated GFR < 15 mL/min/1.73m2 Hold Gold Reviewed date:08/04/2024 02:27:40 PM Interpretation: Performing Lab:[facility], [address] [place] [phone] Notes/Report: Tracie Kapadia See Note Specimen held untested for 24 hours; Call to request Chemistry testing. Reason For Referral No Information Medications Medication SIG (Take, Route, Frequency, Duration) Notes Start Date End Date Status LORazepam 0.5 MG 1 tablet as needed Orally 3 times per day as needed for 14 days 07/09/2018 Not-Taking Atorvastatin Calcium 80 MG TAKE 1 TABLET ONCE DAILY for 90 Active Nitrostat 0.4 MG 1 tablet under the tongue and allow to dissolve as needed Sublingual every 5 mins for 3 times for 30 days 05/31/2013 Not-Taki ng Timolol Maleate 0.5 % 1 drop into affect ed eye Ophthalmic Once a day Active Nystatin-Triamcinolone 348813-7.1 UNIT/GM-% 1 application to affected area Externally Twice a day for 30 days 05/24/2013 Not-Taking Omeprazole 20MG TAKE 1 CAPSULE BY [facility] EVERY DAY Active Aspir-81 81 MG 1 tablet Orally Once a day for 30 day(s) Active Metoprolol Succinate ER 50 MG TAKE 1 TABLET ONCE DAILY for 90 Active Vitamin D (Cholecalciferol) 400 UNIT 2 capsules Orally Once a day for 30 day(s) Active Vitamin C 500 MG as directed Orally Active Valsartan-hydroCHLOROthia zide 160-12.5 MG TAKE 1 TABLET DAILY for 90 Active Immunizations Vaccine Route Administration Date Status Comme nts Flu Vaccine Unknown 07/29/2014 Administered [employer] Fluarix Quadrivalent IM Intramuscular 07/25/2015 Administered Fluarix Quadrivalent IM Intramuscular 11/12/2016 Administered Fluarix Quadrivalent IM Intramuscular 08/05/2017 Administered Prevnar 13 IM Intramuscular 12/29/2018 Administered Fluarix Quadrivalent IM Intramuscular 07/05/2019 Administered PPSV23 (Pnemovax) IM Intramuscular 05/09/2020 Administered Fluarix Quadrivalent IM Intramuscular 07/20/2020 Administered Influenza High Dose IM Intramuscular 07/24/2021 Administered SARS-COV-2 Pfizer Unknown 02/21/2021 Administered SARS-COV-2 Pfizer Unknown 03/15/2021 Administered Influenza High Dose IM Intramuscular 08/02/2022 Administered Influenza High Dose IM Intramuscular 08/15/2023 Administered Influenza High Dose IM Intramuscular 08/03/2024 Administered Fluarix Quadrivalent Unknown 12/29/2018 Refused Social History Tobacco Use: Social History Observation Description Date Details (start date - stop date) Never Smoker NA - NA Tobacco Use/Smoking Question Answer Notes Patient is a nonsmoker Additional Findings: Tobacco Non-User Cu rrent non-smoker, currently using no form of tobacco Alcohol Screen Question Answer Notes Did you have a drink containing alcohol in the p ast year? No Points 0 Interpretation Negative Problems Problem Type SNOMED Code ICD Code Onset Dates Problem Status W/U Status Risk Notes Problem 83638693 Atherosclerotic heart disease of [place] coronary artery without angina pectoris (I25.10) Active confirmed Problem 904632458 Malignant neopla sm of prostate (C61) Active confirmed Problem 77039775 Essential hypert ension (I10) Active confirmed Problem 732045628 History of prost ate cancer (Z85.46) Active confirmed Problem 507166054 Pure hypercholesterolemia (E78.00) Active confirmed Problem 66767527 FILOMENA (obstructive sleep apnea) (G47.33) Active confirmed Vital Signs Blood pressure diastolic 60 mm Hg 08/10/2024 wandy ght is up 3 pounds since 02-09-24 Height 69.5 in 08/10/2024 weight is up 3 pounds since 02-09-24 Blood pressure systolic 134 mm Hg 08/10/2024 weig ht is up 3 pounds since 02-09-24 Weight 235 lbs 08/10/2024 weight is up 3 pounds since 02-09-24 BMI 34.2 kg/m2 08/10/2024 weight is up 3 pounds since 02-09-24 Encounters Encounter Location Date Provider Diagnosis Tyree More MD [address] [place] [id number] 05/10/2024 Tyree More Essential hypertensi on I10 and Elevated BUN R79.9 Tyree More MD [address] [id number] 11/15/2024 Tyree More Essential hypertensi on I10 and Elevated BUN R79.9 Tyree More MD [address] [place] [id number] 02/04/2025 Tyree More Essential hypertensi on I10 and Pure hypercholesterolemia E78.00 Tyree More MD [address] [place] [id number] 02/09/2024 Tyree More Elevated BUN R79.9 ; Essential hypertension I10 ; Pure hypercholesterolemia E78.00 ; History of prostate cancer Z85.46 ; FILOMENA (obstructive sleep apnea) G47.33 ; Colon cancer screening Z12.11 and Depression screening Z13.31 Tyree More MD [address] [place] [id number] 08/03/2024 Tyree More Pure hypercholestero lemia E78.00 and Encounter for immunization Z23 Tyree More MD [address] [place] [id number] 08/10/2024 Tyree More Pure hypercholestero lemia E78.00 and Elevated BUN R79.9 Assessments Encounter Date Diagnosis (ICD Code) Assessment Notes Treatment Notes Treatment Clinical Notes Section Notes 05/10/2024 Essential hypertensi on (ICD-10 - I10) 05/10/2024 Elevated BUN (ICD-10 - R79.9) 11/15/2024 Essential hypertensi on (ICD-10 - I10) 11/15/2024 Elevated BUN (ICD-10 - R79.9) 02/04/2025 Essential hypertensi on (ICD-10 - I10) 02/09/2024 Elevated BUN (ICD-10 - R79.9) will continue to monitor, pending labs 02/09/2024 Essential hypertensi on (ICD-10 - I10) well controlled 08/03/2024 Pure hypercholesterolemia (ICD-10 - E78.00) 08/03/2024 Encounter for immunization (ICD-10 - Z23) 08/10/2024 Pure hypercholesterolemia (ICD-10 - E78.00) stable, is at goal, will continue current regtiment 08/10/2024 Elevated BUN (ICD-10 - R79.9) pending labs, will continue to monitor 02/04/2025 Pure hypercholesterolemia (ICD-10 - E78.00) 02/09/2024 Pure hypercholesterolemia (ICD-10 - E78.00) stable, will coontinue current regiment 02/09/2024 History of prostate cancer (ICD-10 - Z85.46) no evdence of recurrance 02/09/2024 FILOMENA (obstructive sle ep apnea) (ICD-10 - G47.33) using machine 02/09/2024 Colon cancer screeni ng (ICD-10 - Z12.11) guaiac negative 02/09/2024 Depression screening (ICD-10 - Z13.31) negative screen Plan Of Treatment Pending Test Test Name Order Date Electrocardiogram (EKG) 08/09/2016 Complete Blood Count Auto Diff 5 Comprehensive [place]. Panel Fast 5 Lipid Panel 02/04/2025 PSA,Total (Free>4and<10) 02/04/2025 UA ClnCatch+Micro w/rflx Cult 02/04/2025 Next Appt Details Provider Name:Tyree Murray ier, 02/11/2025 01:30:00 PM, [address] [place] [address], [address], [place], [place], [phone], Insurance Providers Payer Name Payer Address Payer Phone Subscriber Number Group Number Insured Name Patient Relationship to Insured Coverage Start Date Coverage End Date [employer] [address] [place] [address] [id number] Tyree Alaniz Self - patient is the insured 8 [employer] [address] [place], [place] [id number] Tyree Alaniz Self - patient is the insured 8 Medical (General) History Medical History History ICD Code colonoscopy and endoscopy 11/26/2011 due in 2017 gastric polyps; colonoscopy 07/16/[address] Bains - Repeat 5 years prostate cancer surgery 02/27 tubular adenoma colon colonoscopy 2022 d elaine in 5 years Surgical History Surgery Date(Month/Year) prostatectomy 02/27
[2025-02-04 11:19] LABS: PSA,Total (Free>4and<10) < 0.10 ng/mL (0.00-4.00)
[2025-02-04 19:44] LABS: Alkaline Phosphatase 68 U/L (39-117)
== END 2025-02-04 10:19 | disposition home or self-care (01) ==
LOC: HO.LNP 10:18
PROVIDERS: Visit Provider Internal Medicine
DX: I10 Essential (primary) hypertension (principal); E78.00 Pure hypercholesterolemia, unspecified; Z12.5 Encounter for screening for malignant neoplasm of prostate
CPT/HCPCS: 80053; 80061; 81001; 84153; 85025

== ENCOUNTER 2025-08-25 11:28 | Outpatient (REF) | payer MEDICARE, SELFPAY ==
[2025-08-25 11:52] LABS: Alanine Aminotransferase 28 U/L (0-40); Albumin Level 4.0 g/dL (3.5-5.0); Alkaline Phosphatase 65 U/L (39-117); Aspartate Amino Transferase 29 U/L (5-37); Cholesterol 133 mg/dL (<200); HDL Cholesterol 47 mg/dL (>40); Total Protein 7.0 g/dL (6.5-8.0); Triglycerides 73 mg/dL (<150)
[2025-08-25 12:55] LABS: Reflex LDLD? No
--- OUTSIDE RECORDS SUMMARY | 2025-08-25 14:22 | XMS_ITS | Patient Health Record ---
Author Organization [facility] Address [address] [place] [address] Care Team Providers Care Tea [place]ation Worker Name Role Phone Tyree More MD Primary Care Provider Radu Mauricio Unavailable [phone] Allergies Allergen (clinical drug ingredient) Drug/Non Drug [...] Problem Status W/U Status Risk Notes Problem Screening for malignant neoplasm of colon (901053141) Encounter for screening for malignant neoplasm of colon (Z12.11) Active confirmed Problem History of adenomatous polyp of colon (841622538) History of adenomatous polyp of colon (Z86.010) Active confirmed Problem Gastroesophageal reflux disease without esophagitis (762964817) Gastroesophageal reflux disease without esophagitis (K21.9) Active confirmed Problem Long-term current use of antiplatelet drug (618085071027858) Long-term use of aspirin therapy (Z79.82) Active confirmed Problem Irritable bowel syndrome (97964472) Irritable bowel syndrome, unspecified type (K58.9) Active confirmed Problem Diverticulosis of colon (416653463) Diverticulosis of colon (K57.30) Active confirmed Plan [...] [place] [address] [place] [address] [id number] TYREE QUINONES Self - patient is the insured [employer] [address] [place] [address] [phone] [id number] TYREE QUINONES Self - patient is the insured Medical (General) History Medical History History ICD Code Negative screening colonosco py 11-26-2011 except for diverticulosis and internal hemorrhoids; colonoscopy in 2005 revealed a tubular adenoma that was removed and a colonoscopy in 1999 was negative except for hyperplastic polyps Prostate cancer treated with prostatecto my in February 2011 Hypertension Hyperlipidemia Denies [place],DM,CVA,Lung diseas e,renal disease--had a negative cardiac cath [...]
--- OUTSIDE RECORDS SUMMARY | 2025-08-25 14:22 | XMS_ITS | Encounter Summary ---
Author Organization [facility] Address [address] [place] [address] Care Team Providers Care Chemistry Professor Name Role Phone Physician, Pcp Unknown Primary Care Provider Amirah vailable Encounter Details Date Type Department Care Team (Late st Contact Info) Description 03/15/2025 Lab Requisition [facility] - Main Lab [address] [place] [address] Jeison Day MD [address] [place] [id number] Other microscopic hematuria Social History Tobacco Use Types Packs/Day Years Used Date Smoking Tobacco: Never Assessed Sex and Gender Information Value Date Recorded Sex Assigned at Not on file Legal Sex Male 1:45 PM EDT Gender Identity Not on file Sexual Orientation Not on file documented as of this encounter Plan of Treatment Not on file documented as of this encounter Procedures Procedure Name Priority Date/Time Associated Diagnosis Comments AP OUTSIDE CONSULT Routine 03/10/2025 12 :00 AM EDT Other microscopic hematuria documented in this encounter Results * Anatomic pathology outside consult (03/10/2025 12:00 AM EDT) Final Diagnosis A. Urine, Voided, ([id number]): Negative for high grade urothelial carcinoma. 03/16/2025 2:19 PM EDT [facility] Clinical Information Other microscopic hematuria R31.29 Urine cytology with reflex UroVysion (AUC/SHGUC) 03/16/2025 2:19 PM EDT [facility] Gross Description A. Urine, Voided, [id number]: Received one ThinPrep slide for cytology. 03/16/2025 2:19 PM EDT [facility] Disclaimer Unless otherwise specified, all tissue is 10% NB formalin fixed and paraffin embedded. Technical pathology services provided by [facility] at [address], [place] [address] (CLIA #[id number]/Sa leanne Kwok MD, Analysis Mgr) 03/16/2025 2:19 PM EDT [facility] Tissue Urine specimen from urethra / Unknown 03/10/2025 03/15/2025 2:04 PM EDT us Jeison Day MD LAB PATHOLOGY ORDERABLES Final Result [facility] [address] [place] [address], documented in this encounter Visit Diagnoses Diagnosis Other microscopic hematuria documented in this encounter Care Teams Chemistry Professor Relationship Specialty Start Date End Date Physician, Pcp Unknown PCP - General 03/15/25 documented as of this encounter
--- OUTSIDE RECORDS SUMMARY | 2025-08-25 14:22 | XMS_ITS | Clinical Summary ---
Author Organization [facility] Address [address] [place] [address] Phone Care Team Providers Care Stave Machine Tender Name Role Phone Physician, Pcp Unknown Primary Care Provider Amirah vailable Social History Tobacco Use Types Packs/Day Years Used Date Smoking Tobacco: Never Assessed Sex and Gender Information Value Date Recorded Sex Assigned at Not on file Legal Sex Male 1:45 PM EDT Gender Identity Not on file Sexual Orientation Not on file Plan of Treatment Health Maintenance Due Date Last Done Comments DTaP,Tdap,and Td Vaccines (1 - Tdap) 1968 Pneumococcal Vaccine: 50+ Ye ars (1 of 1 - PCV) 1999 Zoster Vaccines (1 of 2) 1999 RSV Immunization Adult Patie nts (1 - 1-dose 75+ series) 2024 Depression Screening 10/20/2024 Cholesterol Screening (Lipid Panel) 03/15/2025 Falls Risk Assessment 03/15/2025 Hepatitis C Screening 03/15/2025 Medicare Annual Wellness Visit 03/15/2025 Social Influencers of Health Screening 03/15/2025 COVID-19 Vaccine (1 - 2023-2 5 season) 2025 Influenza Vaccine (#1) 2025 HIB Vaccines Aged Out No longer eligi ble based on patient's age to complete this topic HPV Vaccines Aged Out No longer eligi ble based on patient's age to complete this topic Hepatitis A Vaccines Aged Out No long er eligible based on patient's age to complete this topic Hepatitis B Vaccines Aged Out No long er eligible based on patient's age to complete this topic IPV Vaccines Aged Out No longer eligi ble based on patient's age to complete this topic MMR Vaccines Aged Out No longer eligi ble based on patient's age to complete this topic Meningococcal ACWY Vaccine Aged Out N o longer eligible based on patient's age to complete this topic Meningococcal B Vaccine Aged Out No l onger eligible based on patient's age to complete this topic RSV Immunization Patients Un segundo 20 months Aged Out No longer eligible b ased on patient's age to complete this topic Varicella Vaccines Aged Out No longer eligible based on patient's age to complete this topic Insurance MEDICARE [facility] Care Teams Stave Machine Tender Relationship Specialty Start Date End Date Physician, Pcp Unknown PCP - General 03/15/25
== END 2025-08-25 11:29 | disposition home or self-care (01) ==
LOC: HO.LNP 11:28
PROVIDERS: Visit Provider Internal Medicine
DX: E78.00 Pure hypercholesterolemia, unspecified (principal)
CPT/HCPCS: 80061; 80076